=== PATIENT | male | born 1940 | race Caucasian/White ===

== ENCOUNTER 2017-12-18 14:46 | Emergency (ER) | payer OTHER ==
[~2017-12-18] VITALS: Ht 177.8 cm; Wt 90.7 kg
[~2017-12-18 14:46] MED LIST: ALBU90OI6 INH; ALBU90OI61 INH; ASPI325 PO; ASPI81CH PO; ELIQUIS5 MG PO; FURO40 PO; GABA300 PO; HYDACE5 PO; HYDHCL25 PO; IBUP400 PO; LISI20 PO; LISI5 PO; LORA1 PO; Lisinopril2.5 MG PO; METO25 PO; METO25ER PO; OMEP20ER PO; Prilosec Otc20 MG PO; RXLORA1 PO; SILD50TA PO; SIMV40 PO; STOOL SOFTENER; TIOT18 INH; Toprol Xl25 MG PO; Zestril40 MG PO; [UNRECOGNIZED DRUG - REMARK]; [UNRECOGNIZED DRUG - REMARK]
[2017-12-18 15:26] LABS: BASOPHILS ABSOLUTE AUTO 0.06 K/mm3 (0.00-0.23); BASOPHILS PERCENT AUTO 1 % (0-2); EOSINOPHILS PERCENT AUTO 1 % (0-6); Hematocrit 44.3 % (37.0-53.0); Hemoglobin 15.1 g/dL (13.5-17.5); IMMATURE GRAN ABSOLUTE AUTO 0.05 K/mm3 (0.00-0.10); IMMATURE GRAN PERCENT AUTO 1 % (0-1); LYMPHOCYTES ABSOLUTE AUTO 1.83 K/mm3 (0.84-5.20); LYMPHOCYTES PERCENT AUTO 25 % (21-46); MONOCYTES ABSOLUTE AUTO 0.63 K/mm3 (0.16-1.47); MONOCYTES PERCENT AUTO 9 % (4-13); Mean Corpuscular HGB 31.9 pg (26.0-34.0); Mean Corpuscular HGB Conc 34.1 g/dL (31.5-36.5); Mean Corpuscular Volume 94 fL (80-100); NEUTROPHILS ABSOLUTE AUTO 4.68 K/mm3 (1.96-9.15); NEUTROPHILS PERCENT AUTO 64 % (41-73); RDW Coefficient Variation 13.8 % (11.7-14.2); RDW Standard Deviation 47.3 fL (35.1-46.3); Red Blood Cell Count 4.73 M/mm3 (4.30-5.90); White Blood Cell Count 7.35 K/mm3 (4.00-11.30)
[2017-12-18 15:27] LABS: Mean Platelet Volume 13.3 fL (9.1-12.4); Platelet Count 159 K/mm3 (150-400)
[2017-12-18 15:38] LABS: International Normalized Ratio 1.04; Prothrombin Time Results 10.8 Sec (9.7-11.5)
[2017-12-18 16:18] LABS: Troponin I <0.015 ng/mL (0.000-0.040)
[2017-12-18 16:38] LABS: Alanine Aminotransfer (ALT/SGP 21 U/L (12-78); Albumin, Blood 3.6 g/dL (3.4-5.0); Albumin/Globulin Ratio 0.8 (0.8-1.8); Alk Phos 34 U/L (50-136); Anion Gap 4 mmol/L (6-16); Aspartate Aminotrans (AST/SGOT 17 U/L (12-37); Bilirubin, Total 0.5 mg/dL (0.1-1.0); Blood Urea Nitrogen 13 mg/dL (8-24); Bun/Creatinine Ratio 15.3 (12.0-20.0); CO2, Blood 30 mmol/L (21-32); Calcium, Blood 9.1 mg/dL (8.5-10.1); Chloride, Blood 106 mmol/L (98-108); Creatinine, Blood 0.85 mg/dL (0.60-1.20); Globulin, Blood 4.6 g/dL (2.2-4.0); Glomerular Filtration Rate >60 (60-); Glucose, Blood 85 mg/dL (70-99); Potassium, Blood 4.1 mmol/L (3.5-5.5); Sodium, Blood 140 mmol/L (136-145); Total Protein, Blood 8.2 g/dL (6.4-8.2)
[2017-12-18 19:44] LABS: Troponin I <0.015 ng/mL (0.000-0.040)
[2018-08-28] MEDS ORDERED: ALBU90OI61 INH (13:42)
[2018-08-28] MEDS ORDERED: ELIQUIS5 M1 PO (13:43)
[2018-08-28] MEDS ORDERED: Prilosec Otc20 MG PO (13:43)
[2018-08-31] MEDS ORDERED: Amiodarone HCl200 MG PO (09:58)
== END 2017-12-18 20:57 | disposition home or self-care (01) ==
LOC: ER 14:46
PROVIDERS: Emergency Medicine; Physician Assistant; Registered Nurse
DX: R07.9 Chest pain, unspecified (principal); R10.13 Epigastric pain; Z88.8 Allergy status to other drugs, medicaments and biological substances; Z79.899 Other long term (current) drug therapy; Z79.82 Long term (current) use of aspirin; I48.91 Unspecified atrial fibrillation; J44.9 Chronic obstructive pulmonary disease, unspecified; F41.9 Anxiety disorder, unspecified; F17.200 Nicotine dependence, unspecified, uncomplicated; Z85.46 Personal history of malignant neoplasm of prostate
CPT/HCPCS: 36415; 71046; 76705; 80053; 83690; 84484; 85025; 85610; 93005; 93010; 99284

== ENCOUNTER → 2021-10-16 | Outpatient (CLI) | payer OTHER ==
[~2021-10-16] MED LIST changes: +Amiodarone HCl200 MG PO; +ELIQUIS5 M1 PO
== END ==
LOC: LAB SHORT 14:57 → LAB 14:57
DX: R30.0 Dysuria (principal); Z88.8 Allergy status to other drugs, medicaments and biological substances
CPT/HCPCS: 87077; 87086; 87186

== ENCOUNTER 2024-09-24 08:26 | Day surgery (SDC) | payer OTHER ==
[~2024-09-24] VITALS: Ht 177.8 cm; Wt 84.0 kg
[~2024-09-24 08:26] MED LIST changes: +ALBU90OI INH; +Aspir 8181 MG PO; +CLOP75 PO; +GABA100 PO; +Prinivil10 MG PO; +SPIRIVA RESPIMAT INH; +Vitamin D1000 UNI1 PO
[2024-09-24] MEDS ORDERED: Heparin Sodium 1000 Units/ML 10ML MDV ONE (09:49)
[2024-09-24] MEDS ORDERED: NS 1,000 ML IV ONE ×2 (09:50→10:08)
[2024-09-24] MEDS ORDERED: NS 250 ML IV ONE (09:50)
[2024-09-24 10:06] VITALS: BP 167/84
[2024-09-24] MEDS ORDERED: Midazolam HCl 1MG / ML 2ML Vial ONE (10:08)
[2024-09-24] MEDS ORDERED: FentaNYL Citrate 50 MCG/ML 2 ML Injection ONE (10:08)
[2024-09-24] MEDS ORDERED: Atropine Sulfate 0.1 MG/ML 10ML SYR ONE (10:08)
[2024-09-24 10:09] LABS: BASOPHILS ABSOLUTE AUTO 0.06 K/mm3 (0.00-0.23); BASOPHILS PERCENT AUTO 1 % (0-2); EOSINOPHILS ABSOLUTE AUTO 0.12 K/mm3 (0.00-0.68); EOSINOPHILS PERCENT AUTO 2 % (0-6); Hematocrit 37.1 % (37.0-53.0); Hemoglobin 12.5 g/dL (13.5-17.5); IMMATURE GRAN ABSOLUTE AUTO 0.04 K/mm3 (0.00-0.10); IMMATURE GRAN PERCENT AUTO 1 % (0-1); LYMPHOCYTES ABSOLUTE AUTO 1.76 K/mm3 (0.84-5.20); LYMPHOCYTES PERCENT AUTO 24 % (21-46); MONOCYTES ABSOLUTE AUTO 0.55 K/mm3 (0.16-1.47); MONOCYTES PERCENT AUTO 8 % (4-13); Mean Corpuscular HGB 31.9 pg (26.0-34.0); Mean Corpuscular HGB Conc 33.7 g/dL (31.5-36.5); Mean Corpuscular Volume 95 fL (80-100); Mean Platelet Volume 11.9 fL (9.1-12.4); NEUTROPHILS ABSOLUTE AUTO 4.84 K/mm3 (1.96-9.15); NEUTROPHILS PERCENT AUTO 66 % (41-73); Platelet Count 142 K/mm3 (150-400); RDW Coefficient Variation 13.1 % (11.7-14.2); RDW Standard Deviation 45.1 fL (35.1-46.3); Red Blood Cell Count 3.92 M/mm3 (4.30-5.90); White Blood Cell Count 7.37 K/mm3 (4.00-11.30)
[2024-09-24 10:15] LABS: International Normalized Ratio 1.06; Prothrombin Time Results 11.3 Sec (9.7-11.5)
[2024-09-24 10:21] LABS: Bun/Creatinine Ratio 12.4 (12.0-20.0); Calcium, Blood 9.2 mg/dL (8.5-10.1); Creatinine, Blood 1.53 mg/dL (0.60-1.20); Potassium, Blood 4.1 mmol/L (3.5-5.5)
--- NOTE | 2024-09-24 12:00 | NUR ---
patient arrived to recovery room, responds appropriately, left groin site soft and nontender, no bleeding, no hematoma
--- NOTE | 2024-09-24 12:29 | NUR ---
notified Dr Arshad's office per Dr Addison's request concerning bradycardia. patient has an appointment on 10/25/[address] Arshad, will fax current ekg
--- NOTE | 2024-09-24 12:53 | NUR ---
PATIENT SITTING UP IN BED, DRINKING FLUIDS
--- NOTE | 2024-09-24 14:25 | NUR ---
patient verbalized understanding of discharge instructions and precautions. groin site remains soft and nontender dressing D&I no hematoma, no bleeding iv site dced with catheter intact patient discharged via wheel chair to waiting car, escort in attendance
== END 2024-09-24 23:47 | disposition home or self-care (01) ==
LOC: MHTC 08:26
PROVIDERS: Radiology Diagnostic Radiology
DX: I70.223 Atherosclerosis of native arteries of extremities with rest pain, bilateral legs (principal); I10 Essential (primary) hypertension; E78.5 Hyperlipidemia, unspecified; I25.10 Atherosclerotic heart disease of native coronary artery without angina pectoris; J44.9 Chronic obstructive pulmonary disease, unspecified; G47.33 Obstructive sleep apnea (adult) (pediatric); F17.210 Nicotine dependence, cigarettes, uncomplicated; Z88.8 Allergy status to other drugs, medicaments and biological substances; Z79.82 Long term (current) use of aspirin; Z79.899 Other long term (current) drug therapy
CPT/HCPCS: 76937; 80048; 85025; 85610; 99152; 99153; C1714; C1725; C1760; C1769; C1874; C1887; C1894; C2623; J0461; J1644; J2250; J3010; J7030; J7050; Q9967

== ENCOUNTER → 2024-11-08 | Outpatient (CLI) | payer OTHER | LOC: LAB 13:35 → LAB SHORT 13:35 | DX: R30.0 Dysuria (principal) | CPT/HCPCS: 87086 ==

== ENCOUNTER 2024-11-09 12:28 | Emergency (ER) | payer OTHER ==
[~2024-11-09] VITALS: Ht 177.8 cm; Wt 83.5 kg
[2024-11-09 13:12] LABS: BASOPHILS ABSOLUTE AUTO 0.04 K/mm3 (0.00-0.23); BASOPHILS PERCENT AUTO 0 % (0-2); EOSINOPHILS PERCENT AUTO 0 % (0-6); Hematocrit 30.2 % (37.0-53.0); Hemoglobin 10.2 g/dL (13.5-17.5); IMMATURE GRAN ABSOLUTE AUTO 0.17 K/mm3 (0.00-0.10); IMMATURE GRAN PERCENT AUTO 1 % (0-1); LYMPHOCYTES ABSOLUTE AUTO 1.99 K/mm3 (0.84-5.20); LYMPHOCYTES PERCENT AUTO 11 % (21-46); MONOCYTES PERCENT AUTO 7 % (4-13); Mean Corpuscular HGB 32.5 pg (26.0-34.0); Mean Corpuscular HGB Conc 33.8 g/dL (31.5-36.5); Mean Corpuscular Volume 96 fL (80-100); Mean Platelet Volume 12.3 fL (9.1-12.4); NEUTROPHILS ABSOLUTE AUTO 15.49 K/mm3 (1.96-9.15); NEUTROPHILS PERCENT AUTO 82 % (41-73); Platelet Count 208 K/mm3 (150-400); RDW Coefficient Variation 14.6 % (11.7-14.2); RDW Standard Deviation 50.5 fL (35.1-46.3); Red Blood Cell Count 3.14 M/mm3 (4.30-5.90); White Blood Cell Count 18.99 K/mm3 (4.00-11.30)
[2024-11-09] MEDS ORDERED: Ipratropium/Albuterol SulF 2.5-0.5MG/3 ML Amp INH ONE (13:15)
[2024-11-09] MEDS ORDERED: MethylPREDNISolone Sod Succ 125 MG Vial IV ONE (13:15)
[2024-11-09] MEDS ORDERED: NS 1,000 ML IV SCH (13:20)
[2024-11-09 13:30] LABS: Albumin, Blood 3.5 g/dL (3.4-5.0); Albumin/Globulin Ratio 0.9 (0.8-1.8); Bilirubin, Total 0.7 mg/dL (0.1-1.0); Bun/Creatinine Ratio 13.8 (12.0-20.0); Calcium, Blood 9.3 mg/dL (8.5-10.1); Creatinine, Blood 2.69 mg/dL (0.60-1.20); Potassium, Blood 4.5 mmol/L (3.5-5.5); Total Protein, Blood 7.5 g/dL (6.4-8.2)
[2024-11-09 14:41] LABS: Influenza A, PCR NEGATIVE (NEGATIVE); Influenza B, PCR NEGATIVE (NEGATIVE); Resp Syncytial Virus, PCR NEGATIVE (NEGATIVE); SARS-Cov-2 (COVID-19) PCR, MMC NEGATIVE (NEGATIVE)
[2024-11-09 16:14] LABS: Source, Urine Clean Catch
[2024-11-09 16:16] LABS: Appearance, Urine Bloody (Clear); Bilirubin, Urine Neg (Neg); Blood, Urine 4+ (Neg); Color, Urine Red (P-Yellow); Glucose Qualitative, Urine Neg (Neg); Ketones, Urine Neg (Neg); Leukocyte Esterase, Urine Neg (Neg); Nitrite, Urine Neg (Neg); Protein, Urine 4+ (Neg); Urobilinogen, Urine NORM (Normal)
[2024-11-09 16:30] LABS: Red Blood Cells, Urine TNTC /hpf (0-2); Squamous Epithelial Cells Not Seen /hpf (Few); White Blood Cells, Urine 25-50 /hpf (0-5)
[2024-11-09 16:31] LABS: Bacteria Few /hpf
[2024-11-09] MEDS ORDERED: Lidocaine 2% Jelly Uro-Jet UR ONE (18:05)
[2024-11-09 19:01] LABS: BASOPHILS ABSOLUTE AUTO 0.01 K/mm3 (0.00-0.23); BASOPHILS PERCENT AUTO 0 % (0-2); EOSINOPHILS PERCENT AUTO 0 % (0-6); Hematocrit 26.5 % (37.0-53.0); Hemoglobin 8.8 g/dL (13.5-17.5); IMMATURE GRAN ABSOLUTE AUTO 0.08 K/mm3 (0.00-0.10); IMMATURE GRAN PERCENT AUTO 1 % (0-1); LYMPHOCYTES ABSOLUTE AUTO 0.75 K/mm3 (0.84-5.20); LYMPHOCYTES PERCENT AUTO 6 % (21-46); MONOCYTES ABSOLUTE AUTO 0.13 K/mm3 (0.16-1.47); MONOCYTES PERCENT AUTO 1 % (4-13); Mean Corpuscular HGB 32.4 pg (26.0-34.0); Mean Corpuscular HGB Conc 33.2 g/dL (31.5-36.5); Mean Corpuscular Volume 97 fL (80-100); Mean Platelet Volume 12.1 fL (9.1-12.4); NEUTROPHILS ABSOLUTE AUTO 12.52 K/mm3 (1.96-9.15); NEUTROPHILS PERCENT AUTO 93 % (41-73); Platelet Count 145 K/mm3 (150-400); RDW Coefficient Variation 14.6 % (11.7-14.2); RDW Standard Deviation 50.7 fL (35.1-46.3); Red Blood Cell Count 2.72 M/mm3 (4.30-5.90); White Blood Cell Count 13.49 K/mm3 (4.00-11.30)
[2024-11-10 00:30] VITALS: BP 124/101
== END 2024-11-10 00:40 | disposition short-term general hospital (02) ==
LOC: ER 12:28
PROVIDERS: Emergency Medicine
DX: N32.89 Other specified disorders of bladder (principal); I48.91 Unspecified atrial fibrillation; J44.9 Chronic obstructive pulmonary disease, unspecified; F17.200 Nicotine dependence, unspecified, uncomplicated; Z79.899 Other long term (current) drug therapy; Z88.8 Allergy status to other drugs, medicaments and biological substances
CPT/HCPCS: 0241U; 36415; 51702; 71046; 74177; 80053; 81001; 83605; 84484; 85025; 85379; 86850; 86900; 86901; 93005; 93010; 94640; 94664; 96361-59; 96374-59; 99285-25; J2919; J7030; Q9967

== ENCOUNTER 2024-11-16 12:38 | Emergency (ER) | payer OTHER ==
[~2024-11-16] VITALS: Ht 177.8 cm; Wt 78.9 kg
[2024-11-16 13:12] VITALS: BP 208/115
== END 2024-11-16 15:34 | disposition home or self-care (01) ==
LOC: ER 12:38
DX: T83.091A Other mechanical complication of indwelling urethral catheter, initial encounter (principal); J44.9 Chronic obstructive pulmonary disease, unspecified; I48.91 Unspecified atrial fibrillation; F17.200 Nicotine dependence, unspecified, uncomplicated; Z79.82 Long term (current) use of aspirin; Z79.899 Other long term (current) drug therapy; Z88.1 Allergy status to other antibiotic agents; Z88.8 Allergy status to other drugs, medicaments and biological substances
CPT/HCPCS: 99283